=== PATIENT | female | born 1980 | race Caucasian/White ===

== ENCOUNTER → 2017-10-08 | Day surgery (SDC) | payer OTHER ==
--- NOTE | 2017-10-05 13:14 | Diagnostic Imaging Report ---
PROCEDURE: Frontal and lateral views of the chest. COMPARISON: Patients [facility], , CHEST 2 VIEWS, 06/16/2017, 11:44. INDICATIONS: PRE OP BUNIONECTOMY FINDINGS: Lines/tubes: None. Lungs: The lungs are well inflated and clear. There is no evidence of pneumonia or pulmonary edema. Pleura: There is no pleural effusion or pneumothorax. Heart and mediastinum: The heart and the mediastinum are normal. Bones: No acute bony abnormality. IMPRESSION: 1. No acute cardiopulmonary abnormalities. Augie Hutchinson M.D. Dictated by: Augie Hutchinson M.D. on 10/05/2017 at 13:14 Electronically approved by: Augie Hutchinson M.D. on 10/05/2017 at 13:14
[~2017-10-08] MED LIST: ADDERALL 20 MG20 MG PO; AMBIEN10 MG PO; BUPIVACAINE HCL 0.5% 10ML MPF VIAL INJ ONE; CEFAZOLIN SOD 2 GM/D5W 50ML 50 ML IV ONE; CELEBREX100 MG PO; DESFLURANE 240 ML BTL INH ONE; DEXAMETHASONE SOD PHOS INJ 4 MG/ML VIAL ONE; FENTANYL CITRATE/PF 100MCG/2 ML INJ ONE; HYDROMORPHONE 1MG/1ML INJ ONE; IBUPROFEN400 MG PO; KETOROLAC TROMETHAMINE 30 MG/ML VIAL ONE; LIDOCAINE HCL 2% LOCAL INJ 5 ML SDV VIAL INJ ONE; METOCLOPRAMIDE HCL 10 MG/2ML VIAL ONE; MIDAZOLAM HCL 2 MG/2 ML VIAL ONE; NEOMYCIN/POLYMYX/BACITR OINT 0.9 GM PKT ONE; ONDANSETRON HCL INJ 2 MG/ML VIAL ONE; PROPOFOL IV EMULSION 10 MG/ML 20 ML VIAL ONE
--- OUTSIDE RECORDS SUMMARY | 2017-10-08 05:36 | XMS REPORT ---
Author Author [facility] Address Unknown Phone Unavailable Care Team Providers Care Back End Architect Name Role Phone BERNADETTE HAWK Unavailable Unavailable Problems This patient has no known problems. Allergies, Adverse Reactions, Alerts This patient has no known allergies or adverse reactions. Medications This patient has no known medications. Results Test Description Test Time Test Comments Text Results Atomic Results Result Comments CHEST 2 VIEWS [place] [address] Patient Name: MICHELLE FLOYD MR #: [id number] : 1980 Age/Sex: 37/F Req #: [id number] Adm Physician: Ordered by: BERNADETTE HAWK DPM Report #: [id number] Location: OR Room/Bed: Procedure: [id number] 0037 DX/CHEST 2 VIEWS Exam Date: 10/05/17 Exam Time : 1230 REPORT STATUS: Signed PROCEDURE: Frontal and lateral views of the chest. COMPARISON: [facility], , CHEST 2 VIEWS, 2016, 11:44. INDICATIONS: PRE OP BUNIONECTOMY FINDINGS: Lines/tubes: None. Lungs: The lungs are well inflated and clear. There is no evidence of pneumonia or pulmonary edema. Pleura: There is no pleural effusion or pneumothorax. Heart and mediastinum: The heart and the mediastinum are normal. Bones: No acute bony abnormality. IMPRESSION: 1. No acute cardiopulmonary abnormalities. Kushal Hutchinson M.D. Dictated by: Kushal Hutchinson M.D. on 10/05/2017 at 13: 14 Electronically approved by: Kushal Hutchinson M.D. on 10/05/2017 at 13:14 Dictated By: KUSHAL HUTCHINSON MD 131 Transcribed By: KETTY on 10/05/171313 COPY TO: BERNADETTE HAWK DPM CHEST 2 VIEWS [place] [address] Patient Name: MICHELLE FLOYD MR #: [id number] : 1980 Age/Sex: 37/F Req #: [id number] Adm Physician: Ordered by: BERNADETTE HAWK DPM Report #: [id number] Location: OR Room/Bed: Procedure: [id number] [id number] DX/CHEST 2 VIEWS Exam Date: Exam Time: REPORT STATUS: Signed PROCEDURE: X-RAY CHEST, TWO VIEWS COMPARISON: None. INDICATIONS: PREOPERATIVE CHEST XRAY FOR BUNIONECTOMY FINDINGS: LUNGS: No consolidations or edema. PLEURA: No effusions or pneumothorax. HEART T MEDIASTINUM: The heart is within normal size- limits. BONES T SOFT TISSUES: No acute findings. CONCLUSION : No acute thoracic abnormality. Dictated by: Teodora Bowling M.D. on 06/16/2017 at 12:07 Electronically approved by: Teodora Bowling M.D. on 06/16/2017 at 12:07 Dictated By: TEODORA BOWLING MD 120 Transcribed By: KETTY on 06/16/17 [id number] COPY TO: BERNADETTE HAWK DPM
--- OUTSIDE RECORDS SUMMARY | 2017-10-08 05:36 | XMS REPORT | Clinical Summary ---
Author Author [place] [facility] Address Unknown Phone Unavailable Care Team Providers Care Enterprise Cloud Architect Name Role Phone Asked, Pcp PCP Unavailable Allergies Not on File Current Medications Not on file Active Problems Not on file Social History Tobacco Use Types Packs/Day Years Used Date Never Assessed Sex Assigned at Date Recorded Not on file Last Filed Vital Signs Not on file Plan of Treatment Health Maintenance Due Date Last Done Comments PAP SMEAR 2001 INFLUENZA VACCINE 03/02/2017 Results Not on fileafter 10/07/2016
--- NOTE | 2017-10-10 16:15 | Operative Report ---
DATE OF PROCEDURE: October 08, 2017 PREOPERATIVE DIAGNOSIS: Hallux abductovalgus deformity of the left foot. POSTOPERATIVE DIAGNOSES: Hallux abductovalgus deformity of the left foot. TITLE OF OPERATION: Modified Angelo bunionectomy, left foot. AGE: 37 LOCATION: Outpatient. PROCEDURE IN DETAIL: The patient was taken to the operating room in a mildly sedated state and placed upon the operating table in supine position. Following induction of general anesthetic, the left lower extremity was elevated to 60 degrees to exsanguinate before inflating the pneumatic thigh tourniquet to 350 mmHg with good hemostasis. Lower extremity was placed upon the operating table prior to performing the following procedure. Modified Angelo bunionectomy, left foot: An approximate 4-cm dorsal linear incision was made across the dorsomedial aspect of the first metatarsophalangeal joint of the left foot. The incision was deepened via sharp and blunt dissection at the level of dorsal capsular structure. Care was taken to identify and retract all vital structures encountered. The head of the 1st metatarsal was the surgical site and remodeled utilizing oscillating saw. Conjoint tendon of the adductor hallucis muscle was identified and tenotomized. The medial eminence was remodeled and a bivprkg-vin-ulmmqqo V osteotomy was placed with apex distally and base proximally to allow for relative shift lateral-kuhn of the head and the more proximal segment, which was then impacted and stabilized with 2 cortical bone screws. The medial eminence and dorsal medial prominence were remodeled utilizing oscillating saw and rotary bur. The area was irrigated with copious amounts of sterile saline solution. Deep closure was 3-0 Vicryl, subcutaneous closure 4-0 Vicryl, and human tissue allograft was injected into the soft tissues surrounding the joint to prevent contracture and hence wound healing. The area was then blocked with 0.5% Marcaine and Decadron [place], released the pneumatic thigh tourniquet, and showed a normal hyperemic flush to all digits of the left foot. Patient left the operating room with vital signs stable in apparent satisfactory condition having tolerated both the anesthetic and procedure very well. Job#: [id number] DANE
== END | disposition home or self-care (01) ==
LOC: OR 05:34
PROVIDERS: ATTEND Podiatrist Foot Surgery
DX: M20.12 Hallux valgus (acquired), left foot (principal); Z01.818 Encounter for other preprocedural examination
CPT/HCPCS: 28296; 71046; C1713; J1100; J1170; J1885; J2001; J2250; J2405; J2765; 76000

== ENCOUNTER → 2019-02-10 | Day surgery (SDC) | payer BC ==
[2019-02-07 16:47] LABS: BASOPHILS # (AUTO) 0.1 (0.0-0.1); BASOPHILS % 0.5 % (0.0-1.0); EOSINOPHILS # (AUTO) 0.1 (0.0-0.4); EOSINOPHILS % 0.5 % (0.0-6.0); HEMATOCRIT 38.5 % (34.2-44.1); HEMOGLOBIN 13.2 g/dL (12.0-16.0); LYMPHOCYTES # (AUTO) 2.1 (1.0-3.2); LYMPHOCYTES % 19.2 % (18.0-39.1); MEAN CORPUSCULAR HEMOGLOBIN 30.8 pg (28-32); MEAN CORPUSCULAR HGB CONC 34.3 g/dL (31-35); MONOCYTES # (AUTO) 0.6 (0.2-0.8); MONOCYTES % 5.7 % (4.4-11.3); NEUTROPHILS # (AUTO) 8.1 (2.1-6.9); NEUTROPHILS % 73.8 % (38.7-80.0); PLATELET COUNT 305 x10e3/uL (140-360); RED BLOOD COUNT 4.28 x10e6/uL (3.6-5.1); RED CELL DISTRIBUTION WIDTH 12.3 % (11.7-14.4)
[~2019-02-10] MED LIST changes: -BUPIVACAINE HCL 0.5% 10ML MPF VIAL INJ ONE; +BUPIVACAINE HCL 0.5% INJ 30 ML VIAL INJ ONE; +CEFAZOLIN SOD 1 GM/NS 50ML 100 ML IV ONE; -CEFAZOLIN SOD 2 GM/D5W 50ML 50 ML IV ONE; -DESFLURANE 240 ML BTL INH ONE; -HYDROMORPHONE 1MG/1ML INJ ONE; -NEOMYCIN/POLYMYX/BACITR OINT 0.9 GM PKT ONE; +NEOSTIGMINE 1 MG/ML 10ML VIAL ONE; -ONDANSETRON HCL INJ 2 MG/ML VIAL ONE; +ONDANSETRON HCL INJ 2MG/ML 2ML 2 MG/ML VIAL ONE; +SEVOFLURANE INHAL SOLN 250 ML PEN BTL ONE
--- OUTSIDE RECORDS SUMMARY | 2019-02-10 08:46 | XMS REPORT | Clinical Summary ---
Author Author Aditya Mormon Organization [facility] Address Unknown Phone Unavailable Care Team Providers Care Awning Spreader Name Role Phone Asked, No Pcp PCP Unavailable Allergies Not on File Medications Not on file Active Problems Not on file Social History Date Tobacco Use Types Packs/Day Years Used Never Assessed Sex Assigned at Date Recorded Not on file Industry Job Start Date Occupation Not on file Not on file Not on file Travel End Travel History Travel Start No recent travel history available. Last Filed Vital Signs Not on file Plan of Treatment Health Maintenance Due Date Last Done Comments INFLUENZA VACCINE 03/02/2019 Results Not on fileafter 02/09/2018 Advance Directives Patient has advance care planning documents on file. For more information, aftab rivera contact: Aditya Huitron [address] [place] [address]
[2019-02-10 13:00] VITALS: BP 108/61
--- NOTE | 2019-03-02 18:30 | Operative Report ---
DATE OF PROCEDURE: 02/10/2019 SURGEON: Wang Love DPM PREOPERATIVE DIAGNOSES: 1. Painful right foot hardware. 2. Dorsal bone spur, right foot. POSTOPERATIVE DIAGNOSES: 1. Painful right foot hardware. 2. Dorsal bone spur, right foot. TITLE OF THE OPERATION: 1. Removal of hardware, right foot. 2. Dorsal cheilectomy, right foot. ANESTHESIA: General anesthesia. HEMOSTASIS: Right thigh tourniquet at 350 mmHg. PROCEDURE IN DETAIL: The patient was taken to the operating room in a mildly sedated state, placed on the operating table in supine position. Following induction of general anesthetic, the right lower extremity was elevated to 60 degrees to exsanguinate before inflating the pneumatic thigh tourniquet to 350 mmHg to create hemostasis. Right lower extremity was placed on the operating table prior to performing the following procedure: Dorsal cheilectomy of the right foot: An approximate 6 cm linear longitudinal incision was made overlying the first metatarsophalangeal joint of the right foot. Incision was deepened via sharp and blunt dissection on the level of dorsal capsular structure. Care was taken to identify and retract all vital structures encountered. The head of the first metatarsal was delivered into the surgical site. The area of prominence was noted to be dorsally and laterally, and this was resected utilizing oscillating saw and osteotome and mallet. The area was irrigated with copious amounts of sterile saline solution. It was noted that there was contracture around the joint secondary to hardware irritation. The hardware itself was removed utilizing standard technique with the addition of osteotome and mallet, creating a groove for the hardware removal. This having been accomplished, the area was once again irrigated. It was noted that there was some contracture of the joint capsule. Human tissue allograft was used to facilitate a repair of that area. Deep closure with 3-0 Vicryl, subcutaneous closure with 4-0 Vicryl, and skin closure with 4-0 nylon. The areas of surgery were then blocked with 0.5 Marcaine and Decadron LA, released pneumatic thigh tourniquet, showed a normal hyperemic flush to all digits of the right foot. The patient left the operating room, vital signs stable, in apparent satisfactory condition and tolerated both the anesthesia and the procedure very well. MASON Pozo/ALICIA /[id number]
== END | disposition home or self-care (01) ==
LOC: OR 08:44
PROVIDERS: ATTEND Podiatrist Foot Surgery
DX: M20.11 Hallux valgus (acquired), right foot (principal); T84.84XA Pain due to internal orthopedic prosthetic devices, implants and grafts, initial encounter; M77.51 Other enthesopathy of right foot and ankle; Y83.8 Other surgical procedures as the cause of abnormal reaction of the patient, or of later complication, without mention of misadventure at the time of the procedure; Z01.812 Encounter for preprocedural laboratory examination
CPT/HCPCS: 20680; 28289; 36415; 85025; J0690; J1100; J1885; J2001; J2250; J2405; J2704; J2710; J2765; J3010